=== PATIENT | female | born 1960 | race Caucasian/White ===

== ENCOUNTER 2025-08-12 11:36 | Day surgery (SDC) | payer MEDICARE ==
[~2025-08-12] VITALS: Ht 157.5 cm; Wt 80.3 kg
[~2025-08-12 11:36] MED LIST: AMLO1TAB24 PO; ATOR1TAB19 PO; ECOT81TA5 PO; ERGO500029 PO; HYDR-3490 PO; LIDOCAINE 2% 100 MG/5 ML SDV (FOR ANES.) As Ordered ONE; LOSA50TA28 PO; MIDAZOLAM INJ 2 MG/2 ML VIAL As Ordered ONE; PANT40TA29 PO; ROCURONIUM BROMIDE 50MG/5ML VIAL As Ordered ONE; THERTAB52 PO; dexAMETHasone 4 MG/ML 1 ML VIAL As Ordered ONE
[2025-08-12] MEDS: LR 1,000 ML IV SCH (12:33)
[2025-08-12] MEDS: HEPARIN SOD 5000 UNITS/ML 1 ML VIAL/SYRINGE SQ ONE (12:55)
[2025-08-12] MEDS: ceFAZolin SOD 2 GM IV ONCE IV ONE (12:56)
[2025-08-12] MEDS ORDERED: HYDROmorphone HCL 2 MG/ML 1 ML VIAL As Ordered ONE (13:05)
[2025-08-12] MEDS ORDERED: HYDROMORPHONE HCL 0.5 MG/0.5 ML SYRINGE IV PRN (14:20)
[2025-08-12] MEDS ORDERED: LR 1,000 ML IV SCH (14:20)
[2025-08-12] MEDS: ONDANSETRON 4MG 2ML VIAL IV PRN (14:40)
[2025-08-12 15:53] VITALS: BP 129/65; TEMP 97.9; O2SAT 98
== END 2025-08-12 16:23 | disposition home or self-care (01) ==
LOC: M SDC 11:36
PROVIDERS: ATTEND Surgery
DX: K40.90 Unilateral inguinal hernia, without obstruction or gangrene, not specified as recurrent (principal); E11.9 Type 2 diabetes mellitus without complications; Z79.899 Other long term (current) drug therapy; Z79.82 Long term (current) use of aspirin; Z88.8 Allergy status to other drugs, medicaments and biological substances; Z90.710 Acquired absence of both cervix and uterus
CPT/HCPCS: 49650; C1781; J0665; J0688; J1100; J1171; J2250; J2405; J3010